=== PATIENT | male | born 1965 | race African-American/Black ===

== ENCOUNTER 2018-05-01 09:17 | Emergency (ER) | payer OTHER ==
[2018-05-01 09:27] VITALS: BMI 27.3
--- NOTE | 2018-05-01 09:40 | PDOC ---
History of Present Illness - General History Source: Patient Exam Limitations: No Limitations - History of Present Illness Initial Comments: 05/01/18 10:32 The patient is a 52-year-old male with no past medical history presents to the emergency department with a headache and sore throat. The patient states on Sunday he had some strong Bacardi, following patient reports symptoms gradually presented. The patient states on Sunday he was experiencing acid reflux, with heart palpitations. The patient reports going to work on Sunday, but reports it was a struggle. The patient reports yesterday, acute onset of headaches presented while he was driving, localized to the frontal region. The patient reports additional symptoms of a sore throat, subjective fever, and generalized body weakness. The patient reports taking Tylenol for the symptoms , states following he was experiencing excessive sweating. The patient reports since Sunday he hasnt had much fluid and reports he has no taste in the mouth. The patient reports a recent trip to [facility] on April 13, 2018. Denies any sick contact at home or work, cough, shortness of breath, nausea, vomiting, diarrhea, constipation. Denies taking any medication today. Denies neck pain Allergies: NKA Social history: Alcohol use. Denies the use of cigarettes or recreational drug use. Surgical history: Patient denies any surgical history. Family history: No know family history. PCP: Dr. Hunter Sherwood <Sowmya Oliver - Last Filed: 05/01/18 14:07> - General History Source: Patient Exam Limitations: No Limitations <Alem Montoya - Last Filed: 05/04/18 07:29> - General Chief Complaint: Cold Symptoms Stated Complaint: HEADACHE, SORE THROAT Time Seen by Provider: 05/01/18 09:38 Past History <Sowmya Oliver - Last Filed: 05/01/18 14:07> - Past Medical History COPD: No - Suicide/Smoking/Psychosocial Hx Smoking History: Never smoked <Alem Montoya - Last Filed: 05/04/18 07:29> - Past Medical History Allergies/Adverse Reactions: Allergies Allergy/AdvReac Type Severity Reaction Status Date / Time No Known Allergies Allergy Verified 05/01/18 09:27 Home Medications: Ambulatory Orders NK [No Known Home Medication] 05/01/18 Review of Systems - Review of Systems Able to Perform ROS?: Yes Comments:: 05/01/18 10:02 General: (+) Subjective fever and chills, (+)Body weakness, no weight loss HEENT: No change in vision. (+) sore throat,. No ear pain CardioVascular: No chest pain or shortness of breath Respiratory:No cough, shortness of breath, or wheezing. Gastrointestinal: no nausea, vomiting, diarrhea or constipation, No rectal bleeding Genitourinary: No dysuria, hematuria, or frequency Musculoskeletal: No joint or muscle pain or swelling Neurologic: (+) frontal headache. No vertigo, dizziness or loss of consciousness Skin: No rashes or easy bruising Allergic: no skin or latex allergy All other systems reviewed and normal <Sowmya Oliver - Last Filed: 05/01/18 14:07> *Physical Exam - Vital Signs Last Vital Signs Temp Pulse Resp BP Pulse Ox 99.4 F 123 H 20 144/83 99 05/01/18 09:23 05/01/18 09:23 05/01/18 09:23 05/01/18 09:23 05/01/18 09:23 - Physical Exam Comments: 05/01/18 09:59 GENERAL: The patient is in no acute distress. HEAD: Normal with no signs of trauma. EYES: PERRLA, EOMI, sclera anicteric, conjunctiva clear. ENT:TM Normal, No tonsillar enlargement, Ears normal, nares patent, oropharynx clear without exudates. Moist mucous membranes. NECK: Normal range of motion, supple without lymphadenopathy, JVD, or masses. LUNGS: Breath sounds equal, clear to auscultation bilaterally. No wheezes, and no crackles. HEART:(+) Tachycardic. normal S1 and S2 without murmur, rub or gallop. ABDOMEN: Nontender, Soft, normoactive bowel sounds. No guarding, no rebound. No masses palpable. EXTREMITIES: Normal range of motion, no edema. No clubbing or cyanosis. No erythema, or tenderness. NEUROLOGICAL: Cranial nerves II through XII grossly intact. Normal speech. No focal neurological deficits. MUSCULOSKELETAL: Back non-tender to palpation, no CVA tenderness SKIN: Warm, Dry, normal turgor, no rashes or lesions noted. <Sowmya Oliver - Last Filed: 05/01/18 14:07> - Vital Signs Last Vital Signs Temp Pulse Resp BP Pulse Ox 99.4 F 123 H 20 144/83 99 05/01/18 09:23 05/01/18 09:23 05/01/18 09:23 05/01/18 09:23 05/01/18 09:23 <Alem Montoya - Last Filed: 05/04/18 07:29> ED Treatment Course - LABORATORY CBC & Chemistry Diagram: 05/01/18 10:16 05/01/18 10:16 <Sowmya Oliver - Last Filed: 05/01/18 14:07> - LABORATORY CBC & Chemistry Diagram: 05/01/18 10:16 05/01/18 10:16 <Alem Montoya - Last Filed: 05/04/18 07:29> Medical Decision Making - Medical Decision Making 05/01/18 14:[address] Ary Sherwood at 1:14 pm Case discussed with Dr. Sherwood at 2:07 pm. <Sowmya Oliver - Last Filed: 05/01/18 14:07> - Medical Decision Making 05/01/18 11:24 Mr Landry is a 52 yo M who presents to the ER with a complaint of bodyaches, throat pain Pt states that his symptoms began several days ago He felt nauseaous Pt has noted throat pain He noted a gradual onset of a headache yesterday He believes he had a low grade fever last night, took tylenol Returned from [place] 3 weeks ago Examination nml Will do Labs Rapid strep IVF Reglan Re assess Laboratory Tests 05/01/18 05/01/18 10:16 10:16 WBC 5.1 Hgb 13.4 Hct 39.7 Plt Count 77 L Sodium 135 L Potassium 3.9 Chloride 101 Carbon Dioxide 27 BUN 13 Creatinine 1.3 Random Glucose 110 H Total Bilirubin 2.5 H AST 84 H ALT 114 H Pt LFTs abn Likely due to recent alcohol use ? cholelithiasis Will re assess 05/01/18 13:14 US demonstrates fatty liver vs. hepatocellular disease, no gallstones Small renal cyst case reviewed with Dr Hunter Sherwood He will see him in the office for follow up Pt asked to return to the ER immediately for worsening or persistent symptoms Clinical Impression: Febrile illness, initial presentation LFT abnormality, initial presentation 05/04/18 07:28 <Alem Montoya - Last Filed: 05/04/18 07:29> *DC/Admit/Observation/Transfer - Attestations Scribe Attestion: 05/01/18 14:08 Documentation prepared by Sowmya Oliver, acting as medical nurse for Alem Montoya MD. <Sowmya Oliver - Last Filed: 05/01/18 14:07> - Discharge Dispostion Decision to Admit order: No <Alem Montoya - Last Filed: 05/04/18 07:29> Diagnosis at time of Disposition: Febrile illness, LFTs abnormal - Discharge Dispostion Disposition: HOME Condition at time of disposition: Stable - Referrals Referrals: Hunter Sherwood MD [Primary Care Provider] - - Patient Instructions Printed Discharge Instructions: DI for Viral Upper Respiratory Infection -- Adult Additional Instructions: Mr. Landry Thank you for coming to the ER today Please be sure to follow up with your primary care physician, he is expecting a call from you Please take tylenol or motrin for pain/fever Return to the ER for any other concerns or complaints - Post Discharge Activity Forms/Work/School Notes: Back to Work
[2018-05-01] MEDS ORDERED: IBUPROFEN 800 MG/8 ML IJ IVPB ONE ×2 (10:05→10:18)
[2018-05-01] MEDS ORDERED: METOCLOPRAMIDE HCL INJECTION 10 MG/2 ML VIAL IVPUSH ONE (10:05)
[2018-05-01] MEDS ORDERED: SODIUM CHLORIDE 1,000 ML IV STA (10:05)
[2018-05-01] MEDS ORDERED: METOCLOPRAMIDE HCL INJECTION 10 MG/2 ML VIAL ONE (10:18)
[2018-05-01 10:38] LABS: BASO % 0.5 % (0-2.0); HEMATOCRIT 39.7 % (35.4-49); HEMOGLOBIN 13.4 GM/dL (11.7-16.9); LYMPH % 5.2 % (8-40); MCH 31.2 pg (25.7-33.7); MCHC 33.9 g/dl (32.0-35.9); MEAN CELL VOLUME 92.1 fl (80-96); MEAN PLT VOLUME 10.9 fl (7.5-11.1); MONO % 5.4 % (3.8-10.2); NEUT % 88.9 % (42.8-82.8); PLATELET COUNT 77 K/MM3 (134-434); RBC 4.31 M/mm3 (4.00-5.60); RDW 12.8 % (11.9-15.9); WHITE BLOOD COUNT 5.1 K/mm3 (4.0-10.0)
[2018-05-01 10:41] LABS: ALBUMIN 3.7 g/dl (3.4-5.0); ALK PHOS 71 U/L (45-117); AMYLASE 54 U/L (25-115); ANION GAP 7 MMOL/L (8-16); BILIRUBIN,TOTAL 2.5 mg/dL (0.2-1.0); BLOOD UREA NITROGEN 13 mg/dL (7-18); CALCIUM 8.6 mg/dL (8.5-10.1); CHLORIDE 101 mmol/L (98-107); CO2 27 mmol/L (21-32); CREATININE 1.3 mg/dL (0.7-1.3); GLUCOSE,RANDOM 110 mg/dL (74-106); LIPASE 93 U/L (73-393); POTASSIUM 3.9 mmol/L (3.5-5.1); SGOT/AST 84 U/L (15-37); SGPT/ALT 114 U/L (12-78); SODIUM 135 mmol/L (136-145); TOT PROT 7.6 g/dl (6.4-8.2)
[2018-05-01 12:41] LABS: URINE APPEARANCE CLEAR; URINE BILIRUBIN NEGATIVE (<2.0 mg/dL); URINE COLOR AMBER; URINE GLUCOSE (UA) NEGATIVE (NEGATIVE); URINE KETONE TRACE (NEGATIVE); URINE LEUK ESTERASE NEGATIVE (NEGATIVE); URINE NITRITE NEGATIVE (NEGATIVE); URINE UROBILINOGEN NEGATIVE mg/dL (0.2-1.0)
[2018-05-01 12:49] LABS: URINE PROTEIN 1+ (NEGATIVE)
[2018-05-01 12:55] LABS: URINE MUCUS RARE
[2018-05-01 14:08] VITALS: BP 125/67; PULSE 98; TEMP 99.4
== END 2018-05-01 14:05 | disposition home or self-care (01) ==
LOC: JER 09:17
PROC: 3E033GC Introduction of Other Therapeutic Substance into Peripheral Vein, Percutaneous Approach (ICD-10-PCS; principal; 2018-05-01)
PROC: 3E0333Z Introduction of Anti-inflammatory into Peripheral Vein, Percutaneous Approach (ICD-10-PCS; 2018-05-01)
DX: J06.9 Acute upper respiratory infection, unspecified (principal); B97.89 Other viral agents as the cause of diseases classified elsewhere; R94.5 Abnormal results of liver function studies
CPT/HCPCS: 36415; 76705-TC; 80053; 81003; 81015; 82150; 83690; 85025; 87070; 87086; 87430; 99283-25; J7030